=== PATIENT | female | born 1985 | race Two or more races ===

== ENCOUNTER 2025-05-27 04:16 | Emergency (ER) | payer BC ==
[~2025-05-27] VITALS: Ht 157.5 cm; Wt 59.0 kg
[2025-05-27] MEDS ORDERED: LORAZEPAM 1 MG TABLET ONE ×2 (06:58→06:59)
[2025-05-27] MEDS: LORAZEPAM 1 MG TABLET PO ONE (07:06)
[2025-05-27 07:15] VITALS: BP 125/98; TEMP 98.2; O2SAT 99
== END 2025-05-27 07:25 | disposition left against medical advice (07) ==
LOC: ER 04:27
DX: R07.89 Other chest pain (principal); Z91.048 Other nonmedicinal substance allergy status; Z60.2 Problems related to living alone
CPT/HCPCS: 71045-TC